=== PATIENT | female | born 1985 | race Caucasian/White ===

== ENCOUNTER 2024-01-06 10:30 | Emergency (ER) | payer OTHER ==
[~2024-01-06] VITALS: Ht 165.1 cm; Wt 101.1 kg
[2024-01-06] MEDS ORDERED: METH-1164 PO ×2 (11:56→15:03)
[2024-01-06] MEDS ORDERED: IBUP200C25 PO (11:56)
[2024-01-06] MEDS ORDERED: OMEP-173 PO (11:56)
[2024-01-06] MEDS: methocarbamoL 500 MG TAB PO ONE (13:26)
[2024-01-06] MEDS: predniSONE 20 MG TAB PO ONE (13:26)
[2024-01-06] MEDS: KETOROLAC 60MG 2ML VIAL IM ONE (13:27)
[2024-01-06] MEDS ORDERED: PRED20TA PO (15:03)
[2024-01-06] MEDS ORDERED: IBUP-1022 PO (15:03)
[2024-01-06 15:08] VITALS: BP 131/63; TEMP 97.5; O2SAT 97
== END 2024-01-06 15:22 | disposition home or self-care (01) ==
LOC: M ED 10:30
DX: S16.1XXA Strain of muscle, fascia and tendon at neck level, initial encounter (principal); X50.0XXA Overexertion from strenuous movement or load, initial encounter; M51.26 Other intervertebral disc displacement, lumbar region; Z88.5 Allergy status to narcotic agent; Y92.9 Unspecified place or not applicable; Y93.9 Activity, unspecified; Y99.9 Unspecified external cause status; Z79.52 Long term (current) use of systemic steroids; Z79.83 Long term (current) use of bisphosphonates; Z79.899 Other long term (current) drug therapy
CPT/HCPCS: 72125; 96372; 99283; J1885; J7512